=== PATIENT | female | born 1955 | race Caucasian/White ===

== ENCOUNTER 2021-02-08 16:39 | Observation (INO) | payer SELFPAY ==
[~2021-02-08] VITALS: Ht 167.6 cm; Wt 63.5 kg
[~2021-02-08 16:39] MED LIST: DILANTIN100 MG PO; DIOVAN80 MG PO; METFORMIN HCL500 M1 PO
[2021-02-08] MEDS ORDERED: ASPIRIN 81 MG CHEW TAB PO ONE ×2 (17:30→21:00)
[2021-02-08 17:44] LABS: BASOPHILS % 0.4 % (0.0-1.0); EOSINOPHILS # (AUTO) 0.1 (0.0-0.4); EOSINOPHILS % 1.1 % (0.0-6.0); HEMATOCRIT 38.6 % (34.2-44.1); HEMOGLOBIN 12.7 g/dL (12.0-16.0); LYMPHOCYTES % 55.7 % (18.0-39.1); MEAN CORPUSCULAR HEMOGLOBIN 30.7 pg (28-32); MEAN CORPUSCULAR HGB CONC 32.9 g/dL (31-35); MEAN CORPUSCULAR VOLUME 93.2 fL (81-99); MONOCYTES # (AUTO) 0.8 (0.2-0.8); MONOCYTES % 10.8 % (4.4-11.3); NEUTROPHILS # (AUTO) 2.3 (2.1-6.9); NEUTROPHILS % 31.9 % (38.7-80.0); PLATELET COUNT 377 x10e3/uL (140-360); RED BLOOD COUNT 4.14 x10e6/uL (3.6-5.1); RED CELL DISTRIBUTION WIDTH 12.9 % (11.7-14.4)
[2021-02-08 18:05] LABS: ALANINE AMINOTRANSFERASE 28 IU/L (0-55); ALBUMIN/GLOBULIN RATIO 1.6 (0.8-2.0); ALKALINE PHOSPHATASE 109 IU/L (40-150); ANION GAP 17.6 mmol/L (8-16); BLOOD UREA NITROGEN 13 mg/dL (7-26); BUN/CREATININE RATIO 17 (6-25); CALCIUM 9.2 mg/dL (8.4-10.2); CARBON DIOXIDE 24 mmol/L (22-29); CHLORIDE 102 mmol/L (98-107); CREATINE KINASE 105 IU/L (29-168); CREATININE, SERUM 0.78 mg/dL (0.57-1.11); EST GLOMERULAR FILTRATION RATE > 60 ML/MIN (60-); GLUCOSE 123 mg/dL (74-118); POTASSIUM 3.6 mmol/L (3.5-5.1); SODIUM 140 mmol/L (136-145)
[2021-02-08 20:50] LABS: EOSINOPHILS % (MANUAL) 2 % (0-7); LYMPHOCYTES % (MANUAL) 30 % (19-48); MONOCYTES % (MANUAL) 6 % (3.4-9.0); NEUTROPHILS % (MANUAL) 36 % (40-74)
[2021-02-08 20:59] LABS: RBC MORPHOLOGY COMMENT NORMAL
[2021-02-08 21:00] LABS: PLATELET ESTIMATE ADEQUATE; PLATELET MORPHOLOGY COMMENT FEW GIANT
[2021-02-08] MEDS ORDERED: DILANTIN100 MG PO (22:43)
[2021-02-08] MEDS ORDERED: PHENYTOIN SODIUM EXT REL 100 MG CAP ONE (22:54)
[2021-02-08 23:35] VITALS: BP 150/79
[2021-02-08 23:40] VITALS: BP 150/79
[2021-02-08] MEDS ORDERED: PHENYTOIN SODIUM EXT REL 100 MG CAP PO ONE (23:45)
[2021-02-09] VITALS (7 sets, daily range): BP systolic 128–154; BP diastolic 74–79
[2021-02-09 06:07] LABS: BASOPHILS % 0.4 % (0.0-1.0); EOSINOPHILS % 0.6 % (0.0-6.0); HEMATOCRIT 37.9 % (34.2-44.1); HEMOGLOBIN 12.8 g/dL (12.0-16.0); LYMPHOCYTES # (AUTO) 1.9 (1.0-3.2); LYMPHOCYTES % 35.2 % (18.0-39.1); MEAN CORPUSCULAR HEMOGLOBIN 31.1 pg (28-32); MEAN CORPUSCULAR HGB CONC 33.8 g/dL (31-35); MONOCYTES # (AUTO) 0.6 (0.2-0.8); MONOCYTES % 10.7 % (4.4-11.3); NEUTROPHILS # (AUTO) 2.8 (2.1-6.9); NEUTROPHILS % 52.9 % (38.7-80.0); PLATELET COUNT 338 x10e3/uL (140-360); RED BLOOD COUNT 4.12 x10e6/uL (3.6-5.1); RED CELL DISTRIBUTION WIDTH 12.8 % (11.7-14.4)
[2021-02-09 06:21] LABS: CREATINE KINASE 85 IU/L (29-168)
[2021-02-09 06:55] LABS: ALANINE AMINOTRANSFERASE 23 IU/L (0-55); ALBUMIN 4.4 g/dL (3.5-5.0); ALBUMIN/GLOBULIN RATIO 1.7 (0.8-2.0); ALKALINE PHOSPHATASE 99 IU/L (40-150); ANION GAP 13.6 mmol/L (8-16); BLOOD UREA NITROGEN 8 mg/dL (7-26); BUN/CREATININE RATIO 12 (6-25); CALCIUM 8.7 mg/dL (8.4-10.2); CARBON DIOXIDE 23 mmol/L (22-29); CHLORIDE 106 mmol/L (98-107); CREATININE, SERUM 0.67 mg/dL (0.57-1.11); EST GLOMERULAR FILTRATION RATE > 60 ML/MIN (60-); GLUCOSE 130 mg/dL (74-118); POTASSIUM 3.6 mmol/L (3.5-5.1); SODIUM 139 mmol/L (136-145)
[2021-02-09] MEDS ORDERED: LEVETIRACETAM 500 MG TAB PO SCH (09:00)
[2021-02-09] MEDS ORDERED: PHENYTOIN 50 MG TAB PO SCH (09:00)
[2021-02-09] MEDS: VALSARTAN 80 MG TAB PO SCH ×3 (09:00→09:25)
[2021-02-09] MEDS ORDERED: METFORMIN HCL 500 MG TAB CR PO SCH (09:00)
[2021-02-09] MEDS ORDERED: LOSARTAN POTASS25 MG PO (09:25)
[2021-02-09] MEDS ORDERED: GADOBENATE DIMEGLUMINE 1 ML IV ONE (09:45)
[2021-02-09] MEDS: LOSARTAN POTASSIUM 25 MG TAB PO SCH (18:04)
[2021-02-09] MEDS ORDERED: ASPIRIN81 MG PO (18:42)
[2021-02-09] MEDS: LEVETIRACETAM 500 MG TAB PO SCH (21:39)
[2021-02-10] VITALS: BP 139/81
[2021-02-10 04:00] VITALS: BP 145/72
[2021-02-10 08:36] VITALS: BP 124/82
[2021-02-10 08:52] VITALS: BP 124/82
[2021-02-10] MEDS ORDERED: METFORMIN HCL 500 MG TAB CR PO SCH (09:00)
[2021-02-10] MEDS: LOSARTAN POTASSIUM 25 MG TAB PO SCH (10:04)
[2021-02-10] MEDS: LEVETIRACETAM 500 MG TAB PO SCH (10:05)
[2021-02-10] MEDS ORDERED: DILANTIN100 MG PO (13:20)
== END 2021-02-10 15:48 | disposition home or self-care (01) ==
LOC: ER 17:00 → INTOOBSV 22:23 → ERHOLD 22:23 → MED/SURG 23:25
PROVIDERS: ADMIT Internal Medicine; ATTEND Internal Medicine
DX: R56.9 Unspecified convulsions (principal); I10 Essential (primary) hypertension; E11.9 Type 2 diabetes mellitus without complications; Z59.9 Problem related to housing and economic circumstances, unspecified; Z20.822 Contact with and (suspected) exposure to COVID-19
CPT/HCPCS: 36415 ×3; 70450; 70553; 80053 ×2; 80185; 82550 ×2; 82553 ×2; 82948 ×2; 84484 ×2; 85025 ×2; 93005; 99284; G0378 ×3; U0002